=== PATIENT | female | born 1975 | race Caucasian/White ===

== ENCOUNTER 2022-05-30 05:55 | Emergency (ER) | payer OTHER ==
[2022-05-30 06:06] VITALS: BMI 26.6
[2022-05-30] MEDS ORDERED: ACETAMINOPHEN 1000 MG/100 ML BAG IVPB ONE (07:19)
[2022-05-30] MEDS ORDERED: LACTATED RINGERS SOLUTION 1000 ML INFUS.BAG IV ONE (07:39)
[2022-05-30] MEDS ORDERED: ACETAMINOPHEN INJECTION 100 ML IVPB ONE (08:32)
[2022-05-30] MEDS ORDERED: ACETAMINOPHEN 500 MG TABLET (FP) PO ONE (08:40)
[2022-05-30] MEDS ORDERED: ONDANSETRON *ODT* 4 MG TABLET SL ONE (08:48)
[2022-05-30] MEDS ORDERED: ONDANSETRON *ODT* 4 MG TABLET ONE (09:04)
[2022-05-30] MEDS ORDERED: ACETAMINOPHEN 325 MG TABLET (FP) ONE (09:04)
[2022-05-30 09:27] LABS: BASO % 0.8 % (0-2.0); HEMATOCRIT 33.5 % (32.4-45.2); HEMOGLOBIN 10.9 GM/dL (10.7-15.3); LYMPH % 34.6 % (8-40); MCH 30.6 pg (25.7-33.7); MCHC 32.6 g/dl (32.0-36.0); MEAN CELL VOLUME 93.8 fl (80-96); MEAN PLT VOLUME 7.5 fl (7.5-11.1); NEUT % 54.6 % (42.8-82.8); PLATELET COUNT 255 10^3/uL (134-434); RBC 3.57 M/mm3 (3.60-5.2); RDW 14.9 % (11.6-15.6); WHITE BLOOD COUNT 7.1 K/mm3 (4.0-10.0)
[2022-05-30 09:49] LABS: CALCIUM 8.5 mg/dL (8.5-10.1)
[2022-05-30 09:50] LABS: ALBUMIN 3.7 g/dl (3.4-5.0); BLOOD UREA NITROGEN 19.9 mg/dL (7-18)
[2022-05-30 09:53] LABS: CREATININE 0.7 mg/dL (0.55-1.3)
[2022-05-30 09:54] LABS: BILIRUBIN,TOTAL 0.8 mg/dL (0.2-1)
[2022-05-30 09:55] LABS: TOT PROT 6.5 g/dl (6.4-8.2)
[2022-05-30 10:39] VITALS: BP 121/76; PULSE 74; RESP 15; TEMP 98.2
== END 2022-05-30 11:08 | disposition home or self-care (01) ==
LOC: JER 05:55
DX: R07.9 Chest pain, unspecified (principal); F31.9 Bipolar disorder, unspecified; M54.9 Dorsalgia, unspecified
CPT/HCPCS: 0241U-QW; 36415; 71045-TC-FY; 80053; 80307; 84443; 85025; 93005; 93010; 99285-25; Q0162